=== PATIENT | female | born 1935 | race Caucasian/White ===

== ENCOUNTER 2024-01-06 09:05 | Emergency (ER) | payer MEDICARE ==
[~2024-01-06] VITALS: Ht 165.1 cm; Wt 62.3 kg
[2024-01-06 10:01] LABS: BASOPHILS # (AUTO) 0.1 X10'3 (0-0.2); BASOPHILS % (AUTO) 0.7 % (0-1); EOSINOPHILS # (AUTO) 0.4 X10'3 (0-0.9); EOSINOPHILS % (AUTO) 4.9 % (0-6); HEMATOCRIT 39.7 % (35.0-45.0); LYMPHOCYTES # (AUTO) 2.8 X10'3 (1.1-4.8); LYMPHOCYTES % (AUTO) 32.6 % (21-51); MEAN CORPUSCULAR HEMOGLOBIN 30.4 PG (27.0-31.0); MEAN CORPUSCULAR HGB CONC 32.8 g/dL (33.0-36.5); MEAN CORPUSCULAR VOLUME 92.6 FL (78-98); MEAN PLATELET VOLUME 8.3 FL (7.4-10.4); MONOCYTES # (AUTO) 0.7 X10'3 (0-0.9); MONOCYTES % (AUTO) 7.8 % (2-12); NEUTROPHILS # (AUTO) 4.6 X10'3 (1.8-7.7); PLATELET COUNT 211 X10'3 (140-440); RED BLOOD COUNT 4.29 X10'6 (4.20-5.60); RED CELL DISTRIBUTION WIDTH 13.9 % (11.5-14.5); WHITE BLOOD COUNT 8.5 X10'3 (4.5-11.0)
[2024-01-06 10:25] LABS: ANION GAP 8 (8-16); BLOOD UREA NITROGEN 17 MG/DL (7-18); CHLORIDE 104 MMOL/L (99-107); CREATININE 0.81 MG/DL (0.40-0.90); GLUCOSE 95 MG/DL (70-104); POTASSIUM 4.2 MMOL/L (3.5-5.1); SODIUM 138 MMOL/L (135-145); TOTAL CARBON DIOXIDE 25.8 MMOL/L (24-32); eCRCL 45 ML/MIN; eGFR 67 ML/MIN
[2024-01-06 10:26] LABS: ALBUMIN 3.7 G/DL (3.4-5.0); PRO BRAIN NATRIURETIC PEPTIDE 2492 PG/ML (0-450)
[2024-01-06 13:17] LABS: BASOPHILS # (AUTO) 0.1 X10'3 (0-0.2); BASOPHILS % (AUTO) 0.8 % (0-1); EOSINOPHILS # (AUTO) 0.4 X10'3 (0-0.9); EOSINOPHILS % (AUTO) 4.7 % (0-6); HEMATOCRIT 41.6 % (35.0-45.0); HEMOGLOBIN 13.6 g/dl (12.0-16.0); LYMPHOCYTES # (AUTO) 2.6 X10'3 (1.1-4.8); LYMPHOCYTES % (AUTO) 31.3 % (21-51); MEAN CORPUSCULAR HEMOGLOBIN 30.2 PG (27.0-31.0); MEAN CORPUSCULAR HGB CONC 32.7 g/dL (33.0-36.5); MEAN CORPUSCULAR VOLUME 92.5 FL (78-98); MONOCYTES # (AUTO) 0.6 X10'3 (0-0.9); MONOCYTES % (AUTO) 7.4 % (2-12); NEUTROPHILS # (AUTO) 4.7 X10'3 (1.8-7.7); NEUTROPHILS % (AUTO) 55.8 % (42-75); PLATELET COUNT 195 X10'3 (140-440); RED CELL DISTRIBUTION WIDTH 14.4 % (11.5-14.5); WHITE BLOOD COUNT 8.4 X10'3 (4.5-11.0)
[2024-01-06 13:33] LABS: APTT 26 SECONDS (22-32); PROTHROMBIN TIME 10.8 SECONDS (9.0-12.0)
[2024-01-06 13:46] LABS: ALANINE AMINOTRANSFERASE 28 U/L (12-78); ALBUMIN 3.9 G/DL (3.4-5.0); ALKALINE PHOSPHATASE 48 IU/L (46-116); ANION GAP 8 (8-16); ASPARTATE AMINO TRANSFERASE 24 U/L (10-37); BILIRUBIN,TOTAL 0.4 MG/DL (0.1-1.0); BLOOD UREA NITROGEN 17 MG/DL (7-18); BUN/CREATININE RATIO 22.4 (10.0-20.0); CALCIUM 9.4 MG/DL (8.5-10.1); CHLORIDE 103 MMOL/L (99-107); CREATININE 0.76 MG/DL (0.40-0.90); GLUCOSE 100 MG/DL (70-104); POTASSIUM 4.3 MMOL/L (3.5-5.1); SODIUM 139 MMOL/L (135-145); TOTAL CARBON DIOXIDE 27.9 MMOL/L (24-32); TOTAL PROTEIN 7.9 G/DL (6.4-8.2); eCRCL 48 ML/MIN; eGFR 72 ML/MIN
[2024-01-06 13:48] LABS: C-REACTIVE PROTEIN 0.06 MG/DL (0.0-0.5); FREE T4 (FREE THYROXINE) 1.03 NG/DL (0.73-1.40); PRO BRAIN NATRIURETIC PEPTIDE 2728 PG/ML (0-450); THYROID STIMULATING HORMONE 1.18 ulU/ml (0.34-4.50)
[2024-01-06 13:59] LABS: BILIRUBIN,URINE NEGATIVE (Neg); CLARITY,URINE CLEAR (Clear); COLOR,URINE YELLOW (Yellow); GLUCOSE, URINE NEGATIVE (Neg); KETONES,URINE NEGATIVE (Neg); LEUKOCYTE ESTERASE ,URINE TRACE (Neg); NITRITES, URINE NEGATIVE (Neg); OCCULT BLOOD,URINE NEGATIVE (Neg); PROTEIN,URINE NEGATIVE (Neg); UROBILINOGEN,URINE 0.2 E.U/dL (0.2-1.0)
[2024-01-06] MEDS: normal saline 500ml IV soln 500 ML IV ONE (14:00)
[2024-01-06 14:03] LABS: UA COLLECTION TYPE CLN CATCH MIDSTREAM
[2024-01-06 14:21] LABS: BACTERIA,URINE 1+ /HPF (Neg); RBC,URINE 0-2 /HPF (0-2); SQUAMOUS EPITHELIAL CELL,UR FEW /LPF (FEW); TRANSITIONAL EPI CELLS,URINE FEW /HPF; WBC,URINE 0-4 /HPF (0-4)
[2024-01-06 15:47] VITALS: BP 160/68; PULSE 77; RESP 16; TEMP 97.8; O2SAT 98
== END 2024-01-06 15:53 | disposition home or self-care (01) ==
LOC: ER 09:05
DX: R42 Dizziness and giddiness (principal); I10 Essential (primary) hypertension; Z88.0 Allergy status to penicillin
CPT/HCPCS: 36415; 71045; 80048; 80053; 81001; 83880; 84145; 84439; 84443; 84484; 85025; 85610; 85730; 86140; 87040; 87077; 87088; 87186; 93005; 99285; J7030; J7040

== ENCOUNTER 2024-01-09 12:23 | Emergency (ER) | payer MEDICARE ==
[~2024-01-09] VITALS: Ht 165.1 cm; Wt 61.0 kg
[2024-01-09 12:51] VITALS: TEMP 97.3
[2024-01-09 14:14] LABS: BASOPHILS # (AUTO) 0.1 X10'3 (0-0.2); BASOPHILS % (AUTO) 0.7 % (0-1); EOSINOPHILS # (AUTO) 0.3 X10'3 (0-0.9); EOSINOPHILS % (AUTO) 4.2 % (0-6); HEMATOCRIT 38.9 % (35.0-45.0); LYMPHOCYTES # (AUTO) 2.5 X10'3 (1.1-4.8); LYMPHOCYTES % (AUTO) 30.5 % (21-51); MEAN CORPUSCULAR HEMOGLOBIN 30.9 PG (27.0-31.0); MEAN CORPUSCULAR HGB CONC 33.4 g/dL (33.0-36.5); MEAN CORPUSCULAR VOLUME 92.5 FL (78-98); MEAN PLATELET VOLUME 8.6 FL (7.4-10.4); MONOCYTES # (AUTO) 0.7 X10'3 (0-0.9); MONOCYTES % (AUTO) 8.1 % (2-12); NEUTROPHILS # (AUTO) 4.6 X10'3 (1.8-7.7); NEUTROPHILS % (AUTO) 56.5 % (42-75); PLATELET COUNT 213 X10'3 (140-440); RED CELL DISTRIBUTION WIDTH 14.3 % (11.5-14.5); WHITE BLOOD COUNT 8.2 X10'3 (4.5-11.0)
[2024-01-09 14:20] LABS: ALBUMIN 3.8 G/DL (3.4-5.0); ANION GAP 7 (8-16); BLOOD UREA NITROGEN 15 MG/DL (7-18); BUN/CREATININE RATIO 19.5 (10.0-20.0); CALCIUM 9.6 MG/DL (8.5-10.1); CHLORIDE 102 MMOL/L (99-107); CREATININE 0.77 MG/DL (0.40-0.90); GLUCOSE 90 MG/DL (70-104); POTASSIUM 4.5 MMOL/L (3.5-5.1); SODIUM 138 MMOL/L (135-145); TOTAL CARBON DIOXIDE 28.6 MMOL/L (24-32); eCRCL 47 ML/MIN; eGFR 71 ML/MIN
[2024-01-09 15:14] LABS: BILIRUBIN,URINE NEGATIVE (Neg); CLARITY,URINE CLEAR (Clear); COLOR,URINE YELLOW (Yellow); GLUCOSE, URINE NEGATIVE (Neg); KETONES,URINE NEGATIVE (Neg); LEUKOCYTE ESTERASE ,URINE NEGATIVE (Neg); NITRITES, URINE NEGATIVE (Neg); OCCULT BLOOD,URINE TRACE-INTACT (Neg); PH,URINE 6.5 (4.8-8.0); PROTEIN,URINE NEGATIVE (Neg); UROBILINOGEN,URINE 0.2 E.U/dL (0.2-1.0)
[2024-01-09 15:15] LABS: UA COLLECTION TYPE NON-SPECIFIED
[2024-01-09] MEDS: normal saline 1000ml 1,000 ML IV ONE (15:25)
[2024-01-09 15:27] LABS: BACTERIA,URINE FEW /HPF (Neg); MUCUS STRANDS NONE SEEN /LPF (Neg); RBC,URINE 0-2 /HPF (0-2); SQUAMOUS EPITHELIAL CELL,UR FEW /LPF (FEW); WBC,URINE 0-4 /HPF (0-4)
[2024-01-09 16:23] VITALS: BP 156/77; PULSE 81; RESP 16; O2SAT 96
[2024-01-09 16:45] LABS: THYROID STIMULATING HORMONE 1.23 ulU/ml (0.34-4.50)
== END 2024-01-09 16:35 | disposition home or self-care (01) ==
LOC: ER 12:23
DX: R53.1 Weakness (principal); R30.0 Dysuria; I10 Essential (primary) hypertension; Z88.0 Allergy status to penicillin
CPT/HCPCS: 36415; 80048; 81001; 82948; 83605; 84145; 84443; 85025; 87040; 87077; 87186; 96360; 99284; C1758; J7030

== ENCOUNTER 2025-05-12 16:31 | Emergency (ER) | payer MEDICARE ==
[~2025-05-12] VITALS: Ht 165.1 cm; Wt 61.9 kg
[2025-05-12 16:47] VITALS: BP 167/59; PULSE 66; TEMP 98.3; O2SAT 97
[2025-05-12 17:27] VITALS: RESP 16
[2025-05-12] MEDS ORDERED: [UNRECOGNIZED DRUG - CODE] PO (18:06)
--- NOTE | 2025-05-12 18:06 | Physician Documentation ---
History of Present Illness ~ General Chief Complaint: General Stated Complaint: TOOTH PAIN Time Seen by MD: 17:38 OK to notify your PCP?: Yes Primary Medical Doctor: Zamzam Source: patient Mode of Arrival: POV Exam Limitations: no limitations History of Present Illness Initial Comments 72-year-old female presents with tooth pain to left lower canine tooth for the past few days. She admits to having multiple broken teeth that need to be pulled and she has tried to be very careful with them to prevent any infection. She also mentions having hot flashes on and off for the past several months. She reports her primary care provider is working to find a cause of these hot flashes but is wondering if this could be related. Denies any drainage from the teeth. Denies any fevers, chills, nausea vomiting or diarrhea. Medication Reconciliation Allergies: Coded Allergies: Penicillins (Verified Allergy, Unknown, 05/12/25) Scheduled Benzocaine* (Anbesol*), 1 APPLIC TP Q2H Clindamycin HCl (Clindamycin HCl), 1 CAP PO Q6H Past Medical History Past Medical History: Hypertension Review of Systems All Other Systems at this time: Reviewed and Negative Physical Exam Physical Exam Vital Signs: RN Vital Signs have been reviewed: Yes, Temperature: 98.3, Source: Oral, Heart Rate: 66, Respiratory Rate: 16, BP: 167/59, Pulse Oximetry: 97, Weight: 61.900 Oxygen Flow Rate: 0 Pulse Oximetry Reflects: adequate oxygenation Physical Exam General: Alert, no distress. HEENT: No injection, moist mucous membranes. Tenderness to palpation of left lower jaw. Tooth infection to tooth 11, with discharge seen at the gumline. Gumline shows erythema. Multiple dental caries and broken teeth at teeth #7-10. There is no edema to her lips or tongue. Neck: Full range of motion. No anterior cervical lymphadenopathy. Respiratory: No respiratory distress, equal chest rise and fall. Chest: No accessory muscle use. Cardiovascular: Regular rate and rhythm. Gastrointestinal: Nondistended. Extremities: Normal range of motion, no deformity. Neurologic: Oriented x4. Psychiatric: Normal mood and affect. Skin: Normal color, warm and dry. Progress Results/Orders Reviewed/noted all lab results: Yes Results/Orders Completed Orders - BOBBI HERNANDEZ [employer] SPECIALIST Clindamycin Capsule (Cleocin Capsule) (05/12/25 18:00) Benzocaine Top Elen-Anbesol (Anbesol Topi (05/12/25 18:00) Vital Signs 05/12/25 05/12/25 16:47 17:27 Temp 98.3 Pulse 66 Resp 16 16 B/P (MAP) 167/59 Pulse Ox 97 O2 Flow Rate 0 Medical Decision Making Additional information obtaine: family Findings We discussed that the hot flashes on and off for the past few months are likely not related to her current tooth infection. She should continue to follow up with her primary care provider regarding these symptoms. For her tooth pain, physical exam reveals a tooth abscess of tooth number 22 with some drainage at the base of the gumline and some redness. I have placed her on clindamycin with the 1st dose given here in the department the rest sent to the pharmacy. I also sent some benzocaine gel which she can apply to the area to help with pain relief. She can take Tylenol and/or ibuprofen for pain relief at home and follow up with a dentist within the next week. 05/13/25 1133: Patient called reporting that her stomach was extremely upset after taking the clindamycin despite taking it with some food. She is not t aking the morning dose as her stomach is still upset. She is requesting a different medication be sent to the pharmacy. I will send in Keflex. She states that she has not had penicillin in years so she does not remember what the side effect was but it did not involve her airway. Differential Diagnosis Sepsis, dental avulsion, jaw abscess, angioedema, Ivan's angina. Departure Disposition: HOME / SELF CARE / HOMELESS Impression: Primary Impression: Tooth infection Condition: Stable Discharge Instructions: Dental Abscess, [id number] Additional Instructions: Follow up with her dentist within the next week. Return back here for any new or worsening symptoms. Take all antibiotics as prescribed and finish the course. You can use the numbing gel at the base of the tooth to help with the pain. You can use Tylenol and/or ibuprofen for pain relief at home. Referrals: NO PRIMARY CARE PROVIDER (PCP) Prescriptions Cephalexin*Monohydrate* (Keflex*) 500 Mg Capsule 1 CAP PO Q6H for 10 Days, #40 CAP Prov: BOBBI HERNANDEZ [employer]ATIONS SPECIALIST 05/13/25 Benzocaine* (Anbesol*) 12 Ml Bottle 1 APPLIC TP Q2H for 3 Days, #1 EACH Prov: BOBBI HERNANDEZ 05/12/25 Education Educated: Patient Educated regarding: diagnosis, treatment, prognosis, need for follow up Additional Comment Medical Screen Exam This patient recieved a medical screening examination. After reviewing the individual's medical complaints with presenting symptoms and performing an appropriate physical examination, it was determined that no immediate life- threatening emergency medical condition is present. This individual is also not a women having contractions. Signature Scribe Signature: . Attestation: Scribed for Bobbi Hernandez by Bobbi Collazo NP . 05/12/25 18:09 Parts of this note were created using [employer] voice recognition software program. While efforts were made to correct any mistakes made by this voice recognition software program, nonsensical phrases may remain in this note. In addition, there may be errors and syntax, grammar, content and spelling. BOBBI HERNANDEZ May 12, 2025 18:06
[2025-05-12] MEDS ORDERED: ANBESOL TP (18:12)
[2025-05-12] MEDS: benzocaine (Anbesol) 12ml bottle MM PRN (18:20)
[2025-05-13] MEDS ORDERED: CEPH-585 PO (11:36)
== END 2025-05-12 18:22 | disposition home or self-care (01) ==
LOC: ER 16:32
DX: K04.7 Periapical abscess without sinus (principal); I10 Essential (primary) hypertension; Z88.0 Allergy status to penicillin; Z79.899 Other long term (current) drug therapy
CPT/HCPCS: 99283